=== PATIENT | female | born 2000 | race Two or more races ===

== ENCOUNTER 2019-11-13 13:20 | Emergency (ER) | payer OTHER ==
[~2019-11-13] VITALS: Ht 154.9 cm; Wt 47.6 kg
[2019-11-13 13:26] VITALS: BP 118/70; Ht 154.9 cm; Wt 47.6 kg
== END 2019-11-13 13:50 | disposition home or self-care (01) ==
LOC: ED 13:20
DX: R05 Cough (principal); R07.0 Pain in throat

== ENCOUNTER 2019-12-06 16:46 | Emergency (ER) | payer OTHER ==
[~2019-12-06] VITALS: Ht 154.9 cm; Wt 49.0 kg
[2019-12-06 16:53] VITALS: BP 115/71; Ht 154.9 cm; Wt 49.0 kg
== END 2019-12-06 17:40 | disposition home or self-care (01) ==
LOC: ED 16:46
DX: H61.23 Impacted cerumen, bilateral (principal); H93.13 Tinnitus, bilateral